=== PATIENT | female | born 1990 | race African-American/Black ===

== ENCOUNTER 2019-04-27 17:27 | Emergency (ER) | payer OTHER ==
[2019-04-27 17:46] VITALS: BP 127/75; PULSE 74; BMI 29.2
[2019-04-27] MEDS ORDERED: AMOX TR/POT CLAV 875MG/125MG TABLETS (FP) PO ONE (18:05)
[2019-04-27] MEDS ORDERED: AMOX TR/POT CLAV 875MG/125MG TABLETS (FP) ONE (18:10)
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
== END 2019-04-27 18:55 | disposition home or self-care (01) ==
LOC: JER 17:27 → JERFT 17:27
PROC: 0CQ13ZZ Repair Lower Lip, Percutaneous Approach (ICD-10-PCS; principal; 2019-04-27)
DX: S01.511A Laceration without foreign body of lip, initial encounter (principal); W01.0XXA Fall on same level from slipping, tripping and stumbling without subsequent striking against object, initial encounter; Y93.89 Activity, other specified; Y92.814 Boat as the place of occurrence of the external cause; Y99.8 Other external cause status; M12.9 Arthropathy, unspecified
CPT/HCPCS: 12011-25; 99281-25

== ENCOUNTER 2019-09-04 17:08 | Emergency (ER) | payer OTHER ==
--- NOTE | 2019-09-04 17:19 | PDOC ---
Rapid Medical Evaluation Time Seen by Provider: 09/04/19 17:17 Medical Evaluation: Allergies Allergy/AdvReac Type Severity Reaction Status Date / Time No Known Allergies Allergy Verified 08/13/19 15:20 09/04/19 17:17 I have performed a brief in-person evaluation of this patient. The patient presents with a chief complaint of: 4th R digit pain, 4 episodes vomiting and persistent diarrhea since last night Pertinent physical exam findings: swelling/deformity of R 4th digit I have ordered the following: xr, labs The patient will proceed to the ED for further evaluation. Discharge Disposition - Diagnosis Vomiting, Finger pain - Referrals - Patient Instructions - Post Discharge Activity
[2019-09-04 17:20] VITALS: TEMP 97.8; BMI 28.5
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
[2019-09-04] MEDS ORDERED: ONDANSETRON 4 MG/2 ML VIAL IVPUSH ONE (17:46)
[2019-09-04] MEDS ORDERED: FAMOTIDINE 20 MG/50 ML IVPB 20 MG/50 ML MG IVPB ONE ×2 (17:46→17:57)
[2019-09-04] MEDS ORDERED: SODIUM CHLORIDE 1,000 ML IV STA (17:46)
[2019-09-04] MEDS ORDERED: ACETAMINOPHEN 1000 MG/100 ML VIAL (NON FORMULARY) IVPB ONE (17:46)
[2019-09-04] MEDS ORDERED: ACETAMINOPHEN INJECTION 100 ML IVPB ONE (17:56)
[2019-09-04 18:15] LABS: PH,URINE 5.5 (5.0-8.0); URINE APPEARANCE TURBID; URINE BILIRUBIN NEGATIVE (NEGATIVE); URINE COLOR YELLOW; URINE GLUCOSE (UA) NEGATIVE (NEGATIVE); URINE KETONE TRACE (NEGATIVE); URINE LEUK ESTERASE NEGATIVE (NEGATIVE); URINE NITRITE NEGATIVE (NEGATIVE); URINE PROTEIN 1+ (NEGATIVE)
[2019-09-04 18:16] LABS: HCG,QUALITATIVE URINE Negative
[2019-09-04] MEDS ORDERED: ONDANSETRON 4 MG/2 ML VIAL ONE (18:17)
[2019-09-04 18:33] LABS: BASO % 0.3 % (0-2.0); EOS % 0.4 % (0-4.5); HEMATOCRIT 37.8 % (32.4-45.2); HEMOGLOBIN 12.1 GM/dL (10.7-15.3); LYMPH % 8.2 % (8-40); MCH 25.8 pg (25.7-33.7); MEAN CELL VOLUME 80.5 fl (80-96); MEAN PLT VOLUME 8.6 fl (7.5-11.1); MONO % 6.4 % (3.8-10.2); NEUT % 84.7 % (42.8-82.8); PLATELET COUNT 332 K/MM3 (134-434); RDW 14.8 % (11.6-15.6); WHITE BLOOD COUNT 8.5 K/mm3 (4.0-10.0)
[2019-09-04 19:32] LABS: EPI CELLS 15.9 /HPF (0-5/HPF); URINE BACTERIA 487.5 /hpf (NEGATIVE); URINE RBC 2.8 /hpf (0-4); URINE WBC 9.5 /hpf (0-5)
[2019-09-04 20:21] LABS: BILIRUBIN,TOTAL 0.4 mg/dL (0.2-1); BLOOD UREA NITROGEN 11.9 mg/dL (7-18); CREATININE 0.6 mg/dL (0.55-1.3); POTASSIUM 4.8 mmol/L (3.5-5.1); TOT PROT 8.6 g/dl (6.4-8.2)
[2019-09-04 21:27] VITALS: BP 117/65; PULSE 84
== END 2019-09-04 21:18 | disposition home or self-care (01) ==
LOC: JER 17:08
PROC: 3E033GC Introduction of Other Therapeutic Substance into Peripheral Vein, Percutaneous Approach (ICD-10-PCS; principal; 2019-09-04)
PROC: 3E033GC Introduction of Other Therapeutic Substance into Peripheral Vein, Percutaneous Approach (ICD-10-PCS; 2019-09-04)
PROC: 3E033NZ Introduction of Analgesics, Hypnotics, Sedatives into Peripheral Vein, Percutaneous Approach (ICD-10-PCS; 2019-09-04)
DX: K52.9 Noninfective gastroenteritis and colitis, unspecified (principal); M79.645 Pain in left finger(s); Y04.0XXA Assault by unarmed brawl or fight, initial encounter; Y93.89 Activity, other specified; Y92.89 Other specified places as the place of occurrence of the external cause; Y99.8 Other external cause status
CPT/HCPCS: 36415; 73140-TC-RT-FY; 80053; 81003; 83690; 84703; 85025; 87086; 96365; 96375; 99284-25; J0131; J7030

== ENCOUNTER 2022-01-25 15:02 | Emergency (ER) | payer OTHER ==
[2022-01-25 15:41] VITALS: BP 129/85; PULSE 73; RESP 20; TEMP 98.2; BMI 29.5
== END 2022-01-25 17:33 | disposition home or self-care (01) ==
LOC: JERFT 15:02
DX: Z32.02 Encounter for pregnancy test, result negative (principal)
CPT/HCPCS: 36415; 84702; 99283-25

== ENCOUNTER 2024-05-20 17:42 | Emergency (ER) | payer OTHER ==
[2024-05-20 17:49] VITALS: BP 135/78; PULSE 73; RESP 20; TEMP 98.4; BMI 30.7
[2024-05-20 19:13] LABS: BASO % 0.4 % (0-2.0); EOS % 0.3 % (0-4.5); HEMATOCRIT 33.2 % (32.4-45.2); HEMOGLOBIN 10.7 GM/dL (10.7-15.3); LYMPH % 36.8 % (8-40); MCH 25.4 pg (25.7-33.7); MCHC 32.4 g/dl (32.0-36.0); MEAN CELL VOLUME 78.5 fl (80-96); MEAN PLT VOLUME 8.6 fl (7.5-11.1); MONO % 5.9 % (3.8-10.2); NEUT % 56.6 % (42.8-82.8); PLATELET COUNT 306 10^3/uL (134-434); RBC 4.22 M/mm3 (3.60-5.2); RDW 14.5 % (11.6-15.6); WHITE BLOOD COUNT 8.8 K/mm3 (4.0-10.0)
[2024-05-20 19:24] LABS: EPI CELLS 34 /uL (0-25.1); HYALINE CASTS 1 /uL (0-3.1); PH,URINE 6.5 (5.0-8.0); URINE APPEARANCE CLEAR; URINE BACTERIA 364 /uL (0-1359); URINE BILIRUBIN NEGATIVE (NEGATIVE); URINE COLOR YELLOW; URINE GLUCOSE (UA) NEGATIVE (NEGATIVE); URINE KETONE TRACE (NEGATIVE); URINE LEUK ESTERASE NEGATIVE (NEGATIVE); URINE NITRITE NEGATIVE (NEGATIVE); URINE PROTEIN NEGATIVE (NEGATIVE); URINE RBC 14 /uL (0-23.9); URINE WBC 4 /uL (0-25.8)
[2024-05-20 19:34] LABS: CHLORIDE 108 mmol/L (98-107); POTASSIUM 3.5 mmol/L (3.5-5.1); SODIUM 139 mmol/L (136-145)
[2024-05-20 19:36] LABS: CALCIUM 9.8 mg/dL (8.5-10.1)
[2024-05-20 19:37] LABS: ALBUMIN 3.6 g/dl (3.4-5.0); ANION GAP 7 mmol/L (4-13); BLOOD UREA NITROGEN 12.8 mg/dL (7-18); CO2 24 mmol/L (21-32); GLUCOSE,RANDOM 97 mg/dL (74-106)
[2024-05-20 19:40] LABS: CREATININE 0.6 mg/dL (0.55-1.3); SGOT/AST 10 U/L (15-37); SGPT/ALT 16 U/L (13-61)
[2024-05-20 19:42] LABS: BILIRUBIN,TOTAL 0.2 mg/dL (0.2-1); TOT PROT 6.9 g/dl (6.4-8.2)
[2024-05-20 19:43] LABS: ALK PHOS 58 U/L (45-117)
[2024-05-20 22:32] LABS: HIV INTERPRETATION NEGATIVE (NEGATIVE)
== END 2024-05-20 20:06 | disposition home or self-care (01) ==
LOC: JERFT 17:42 → JER 17:42 → JERFT 20:06
DX: R10.2 Pelvic and perineal pain (principal); N92.6 Irregular menstruation, unspecified
CPT/HCPCS: 36415; 76817-TC; 80053; 81003; 84702; 85025; 86803; 86850; 86900; 86901; 87389; 99284-25

== ENCOUNTER 2025-01-20 09:22 | Emergency (ER) | payer OTHER ==
[2025-01-20 09:38] VITALS: BP 136/88; PULSE 68; RESP 16; TEMP 97.7; BMI 30.4
[2025-01-20] MEDS ORDERED: ACETAMINOPHEN 325 MG TABLET (FP) ONE (10:32)
[2025-01-20] MEDS ORDERED: LIDOCAINE 5% TOPICAL PATCH ONE (10:33)
[2025-01-20] MEDS ORDERED: KETOROLAC TROMETHAMINE 15 MG/ML VIAL ONE (10:33)
[2025-01-20] MEDS: ACETAMINOPHEN 325 MG TABLET (FP) PO ONE (10:39)
[2025-01-20] MEDS: KETOROLAC TROMETHAMINE 15 MG/ML VIAL IM ONE (10:39)
[2025-01-20] MEDS: LIDOCAINE 5% TOPICAL PATCH TP ONE (10:39)
[2025-01-20] MEDS ORDERED: LIDOCAINE PATCH REMOVAL MC SCH (22:00)
== END 2025-01-20 10:47 | disposition home or self-care (01) ==
LOC: JERFT 09:22 → JER 09:22 → JERFT 10:47
PROC: 3E0233Z Introduction of Anti-inflammatory into Muscle, Percutaneous Approach (ICD-10-PCS; principal; 2025-01-20)
DX: M54.6 Pain in thoracic spine (principal); W01.0XXA Fall on same level from slipping, tripping and stumbling without subsequent striking against object, initial encounter
CPT/HCPCS: 99284-25